=== PATIENT | male | born 1950 | race Caucasian/White ===

== ENCOUNTER 2017-08-22 09:40 | Inpatient (IN) | payer OTHER ==
--- NOTE | 2017-08-22 10:16 | EDPHY ---
H & P Stated Complaint: cough, chills, fevers for a few days Time Seen by Provider: 08/22/17 10:01 HPI/ROS: CHIEF COMPLAINT: "I just feel like crap " HISTORY OF PRESENT ILLNESS: 67-year-old male with multiple medical comorbidities including history of coronary artery disease, right mastectomy with breast cancer history, diabetes, CHF, AICD, complaining of 2 days of worsening flu-like symptoms including fever, nonproductive cough, myalgia, headache, intermittent vomiting, nausea. Out-of-date with influenza vaccine Denies: Abdominal pain, back or flank pain, diarrhea, melena hematochezia, international travel, PRIMARY CARE PROVIDER: Dr. Valeriy Gaxiola at [facility] physicians in [place] REVIEW OF SYSTEMS: A ten point review of systems was performed and is negative with the exception of the items mentioned in the HPI PAST MEDICAL & SURGICAL HISTORY: Breast cancer. Right mastectomy. CHF. AICD. Coronary artery disease. Diabetes. Multiple abdominal surgeries. Partial gastrectomy. BPH. SOCIAL HISTORY:nonsmoker. PHYSICAL EXAM (Prior to examination, patient consented to physical exam, hands were washed and my usual and customary physical exam procedures followed) 1) GENERAL: Well-developed, well-nourished, alert and oriented. Appears uncomfortable. 2) HEAD: Normocephalic, atraumatic 3) HEENT: Pupils equal, round, reactive to light bilaterally. Sclera anicteric. Nasopharynx, oropharynx, clear, no lesions. Ears bilaterally with normal tympanic membranes. 4) NECK: Full range of motion, no meningeal signs. 5) LUNGS: Clear bilaterally no retractions no accessory muscle use. 6) HEART: Regular rate and rhythm, no murmur, no heave, no gallop. 7) ABDOMEN: No guarding, no rebound, no focal tenderness, negative McBurney's, negative Contreras's, negative Rovsing's, negative peritoneal sign, 8) MUSCULOSKELETAL: Moving all extremities, no focal areas of tenderness, no obvious trauma. No peripheral edema or discoloration. 9) BACK: No CVA tenderness, no midline vertebral tenderness, no fluctuance, no step-off, no obvious trauma, no visual or palpable abnormality. 10) SKIN: No rash, no petechiae. 11) Psychiatric: Patient is oriented X 3, there is no agitation. DIFFERENTIAL DIAGNOSIS: in no particular include but limited to influenza a pneumonia, bronchitis, bowel obstruction, DKA - Personal History Current Tetanus/Diphtheria Vaccine: Yes Current Tetanus Diphtheria and Acellular Pertussis (TDAP): Yes Tetanus Vaccine Date: 2010 - Medical/Surgical History Hx Asthma: No Hx Chronic Respiratory Disease: No Hx Diabetes: Yes Hx Cardiac Disease: Yes Hx Renal Disease: No Hx Cirrhosis: No Hx Alcoholism: No Hx HIV/AIDS: No Hx Splenectomy or Spleen Trauma: No Other PMH: CHF,aicd Pacer,Right, CAD, R sided Breast CA s/p mastectomy, Diabetes type 2, IBS, extensive abdominal surgeries, neuropathies, roque. lle, partial gastrectomy, and feet,hyperlipidemia,enlarged prstate/bph retention/ nocturia - Social History Smoking Status: Former smoker Constitutional: Initial Vital Signs Temperature (C) 37.5 C 08/22/17 09:45 Heart Rate 102 H 08/22/17 09:45 Respiratory Rate 20 08/22/17 09:45 Blood Pressure 164/73 H 08/22/17 09:45 O2 Sat (%) 91 L 08/22/17 09:45 O2 Delivery Mode Nasal Cannula O2 (L/minute) 2 Allergies/Adverse Reactions: Fish Containing Products Allergy (Severe, Verified 08/22/17 09:42) BLEEDING fish oil Allergy (Severe, Verified 08/22/17 09:42) Home Medications: Medication Instructions Recorded Aspirin [Aspirin 81mg (*)] 81 mg PO DAILY@16 08/22/17 Atorvastatin Calcium [Lipitor 40 40 mg PO HS 08/22/17 mg (*)] Carvedilol [Coreg (*)] 25 mg PO BID@06,16 08/22/17 Dicyclomine [Bentyl 10 MG (*)] 10 mg PO DAILY06 08/22/17 Ferrous Sulfate [Ferrous Sulf 325 325 mg PO DAILY06 08/22/17 MG (*)] Furosemide [Lasix 20 MG (*)] 20 mg PO DAILY@12 08/22/17 Furosemide [Lasix 40 MG (*)] 40 mg PO DAILY06 08/22/17 Ibuprofen [Motrin (*)] 200 mg PO QID PRN 08/22/17 Insulin Glargine [Lantus 100 50 units SC BID@06,18 08/22/17 UNITS/ML (*)] Insulin Lispro [humALOG LISPRO 100 0 unit SC QID PRN 08/22/17 units/ml (*)] Lansoprazole [Prevacid] 30 mg PO DAILY06 08/22/17 Lisinopril [Zestril 40 mg (*)] 40 mg PO DAILY06 08/22/17 Multivitamins [Multivitamin (*)] 1 each PO DAILY06 08/22/17 Potassium Cl [Klor-Con 20 meq (*)] 20 meq PO DAILY06 08/22/17 amLODIPine BESYLATE [Norvasc 5 mg 5 mg PO DAILY06 08/22/17 (*)] Medical Decision Making - Diagnostics Imaging Results: Imaging Impressions Chest X-Ray 08/22/17 10:10 Impression: No pneumonia. Stable since May 2014. Abdomen X-Ray 08/22/17 10:16 Impression: Possible large amount of free air. Results discussed with Jeremy Preciado. Abdomen CT 08/22/17 11:28 Impression: 1. Sigmoid diverticulosis. No acute diverticulitis, free fluid or abscess. 2. No obstruction or adynamic ileus. 3. Normal caliber atherosclerotic aorta. Findings discussed with Emergency Department physician, Dangelo Preciado PA-C on August 22, 2017 at 1227 hours. Imaging: Discussed imaging studies w/ heat treat supervisor Radiologist, I viewed and interpreted images myself ED Course/Re-evaluation: 10:17 a.m.:Care of patient under supervision of secondary supervising physician Dr Tomlinson with whom I discussed the case after evaluating patient. . This patient has been re-evaluated with serial examinations most recently at 1: 12 p.m., also exam by Dr. Tomlinson in the ER. Patient remains hypoxemic on room air in the mid 80s. Discussed laboratory studies which overall appear well however I am concerned about his once hypoxemia, concurrent URI symptoms. Recommended admission. Consultation with hospitalist, admit to Dr. Ayon - Data Points Laboratory Results: Laboratory Results 08/22/17 10:21 08/22/17 10:21 08/22/17 08/22/17 08/22/17 11:50 10:21 10:21 WBC RBC Hgb Hct MCV MCH MCHC RDW Plt Count MPV Neut % (Auto) Lymph % (Auto) [place] % (Auto) Eos % (Auto) Baso % (Auto) Nucleat RBC Rel Count Absolute Neuts (auto) Absolute Lymphs (auto) Absolute Monos (auto) Absolute Eos (auto) Absolute Basos (auto) Absolute Nucleated RBC Immature Gran % Immature Gran # PT 13.4 SEC SEC (12.0-15.0) INR 1.03 (0.83-1.16) APTT 30.4 SEC SEC (23.0-38.0) VBG Lactic Acid Sodium 140 mEq/L mEq/L (134-144) Potassium 3.5 mEq/L mEq/L (3.5-5.2) Chloride 103 mEq/L mEq/L (97-110) Carbon Dioxide 23 mEq/l mEq/l (22-31) Anion Gap 14 mEq/L mEq/L (8-16) BUN 21 mg/dL mg/dL (7-23) Creatinine 1.0 mg/dL mg/dL (0.7-1.3) Estimated GFR > 60 Glucose 144 mg/dL H mg/dL (70-100) Calcium 9.1 mg/dL mg/dL (8.5-10.4) Total Bilirubin 0.8 mg/dL mg/dL (0.1-1.4) Conjugated Bilirubin 0.3 mg/dL mg/dL (0.0-0.5) Unconjugated Bilirubin 0.5 mg/dL mg/dL (0.0-1.1) AST 38 IU/L IU/L (17-59) ALT 42 IU/L IU/L (21-72) Alkaline Phosphatase 88 IU/L IU/L (38-126) Total Protein 7.7 g/dL g/dL (6.3-8.2) Albumin 4.4 g/dL g/dL (3.5-5.0) Lipase 38 IU/L IU/L (23-300) Beta-Hydroxybutyrate 0.14 mmol/L mmol/L (0.02-0.27) Urine Color YELLOW Urine Appearance CLEAR Urine pH 5.0 (5.0-7.5) Ur Specific [place] 1.010 (1.002-1.030) Urine Protein NEGATIVE (NEGATIVE) Urine Ketones NEGATIVE (NEGATIVE) Urine Blood 2+ H (NEGATIVE) Urine Nitrate NEGATIVE (NEGATIVE) Urine Bilirubin NEGATIVE (NEGATIVE) Urine Urobilinogen NEGATIVE EU EU (0.2-1.0) Ur Leukocyte Esterase NEGATIVE (NEGATIVE) Urine RBC 1-3 /hpf /hpf (0-3) Urine WBC 1-3 /hpf /hpf (0-3) Ur Epithelial Cells NONE SEEN /lpf /lpf (NONE-1+) Urine Mucus TRACE /lpf /lpf (NONE-1+) Urine Glucose NEGATIVE (NEGATIVE) Nasal Influenza A PCR Nasal Influenza B PCR Influenza A & B (PCR) 08/22/17 08/22/17 08/22/17 10:21 10:21 10:02 WBC 13.34 10^3/uL H 10^3/uL (3.80-9.50) RBC 4.29 10^6/uL L 10^6/uL (4.40-6.38) Hgb 12.7 g/dL L g/dL (13.7-17.5) Hct 36.1 % L % (40.0-51.0) MCV 84.1 fL fL (81.5-99.8) MCH 29.6 pg pg (27.9-34.1) MCHC 35.2 g/dL g/dL (32.4-36.7) RDW 13.5 % % (11.5-15.2) Plt Count 180 10^3/uL 10^3/uL (150-400) MPV 10.7 fL fL (8.7-11.7) Neut % (Auto) 85.2 % H % (39.3-74.2) Lymph % (Auto) 4.8 % L % (15.0-45.0) [place] % (Auto) 7.9 % % (4.5-13.0) Eos % (Auto) 1.3 % % (0.6-7.6) Baso % (Auto) 0.4 % % (0.3-1.7) Nucleat RBC Rel Count 0.0 % % (0.0-0.2) Absolute Neuts (auto) 11.35 10^3/uL H 10^3/uL (1.70-6.50) Absolute Lymphs (auto) 0.64 10^3/uL L 10^3/uL (1.00-3.00) Absolute Monos (auto) 1.06 10^3/uL H 10^3/uL (0.30-0.80) Absolute Eos (auto) 0.17 10^3/uL 10^3/uL (0.03-0.40) Absolute Basos (auto) 0.06 10^3/uL 10^3/uL (0.02-0.10) Absolute Nucleated RBC 0.00 10^3/uL 10^3/uL (0-0.01) Immature Gran % 0.4 % % (0.0-1.1) Immature Gran # 0.06 10^3/uL 10^3/uL (0.00-0.10) PT INR APTT VBG Lactic Acid 1.2 mmol/L mmol/L (0.7-2.1) Sodium Potassium Chloride Carbon Dioxide Anion Gap BUN Creatinine Estimated GFR Glucose Calcium Total Bilirubin Conjugated Bilirubin Unconjugated Bilirubin AST ALT Alkaline Phosphatase Total Protein Albumin Lipase Beta-Hydroxybutyrate Urine Color Urine Appearance Urine pH Ur Specific [place] Urine Protein Urine Ketones Urine Blood Urine Nitrate Urine Bilirubin Urine Urobilinogen Ur Leukocyte Esterase Urine RBC Urine WBC Ur Epithelial Cells Urine Mucus Urine Glucose Nasal Influenza A PCR Nasal Influenza B PCR Influenza A & B (PCR) Cancelled 08/22/17 09:57 WBC RBC Hgb Hct MCV MCH MCHC RDW Plt Count MPV Neut % (Auto) Lymph % (Auto) [place] % (Auto) Eos % (Auto) Baso % (Auto) Nucleat RBC Rel Count Absolute Neuts (auto) Absolute Lymphs (auto) Absolute Monos (auto) Absolute Eos (auto) Absolute Basos (auto) Absolute Nucleated RBC Immature Gran % Immature Gran # PT INR APTT VBG Lactic Acid Sodium Potassium Chloride Carbon Dioxide Anion Gap BUN Creatinine Estimated GFR Glucose Calcium Total Bilirubin Conjugated Bilirubin Unconjugated Bilirubin AST ALT Alkaline Phosphatase Total Protein Albumin Lipase Beta-Hydroxybutyrate Urine Color Urine Appearance Urine pH Ur Specific [place] Urine Protein Urine Ketones Urine Blood Urine Nitrate Urine Bilirubin Urine Urobilinogen Ur Leukocyte Esterase Urine RBC Urine WBC Ur Epithelial Cells Urine Mucus Urine Glucose Nasal Influenza A PCR NEGATIVE FOR FLU A (NEGATIVE) Nasal Influenza B PCR NEGATIVE FOR FLU B (NEGATIVE) Influenza A & B (PCR) Microbiology Results: MICROBIOLOGY 08/22/17 10:25 Nasal, Sinus - Cornelius Viral Transport Respiratory Panel ( PCR) - Final Human Rhinovirus/Enterovirus Medications Given: Acetaminophen (Tylenol) 650 mg PO Q4 PRN PRN Reason: Pain, Mild/Fever, Can Take PO Stop: 02/18/18 15:41 Last Admin: 08/22/17 16:32 Dose: 650 mg Albuterol/Ipratropium (Duoneb) 3 ml IH Q6 BRIAN Stop: 02/18/18 17:59 Last Admin: 08/22/17 16:45 Dose: 3 ml Aspirin (Aspirin) 81 mg PO DAILY@16 BRIAN Stop: 02/18/18 15:59 Last Admin: 08/22/17 16:26 Dose: 81 mg Carvedilol (Coreg) 25 mg PO BID@06,16 [facility] Stop: 02/18/18 15:59 Last Admin: 08/22/17 16:26 Dose: 25 mg Fluticasone Propionate (Flonase Nasal Burns) 2 sprays EACHNARE DAILY [facility] Stop: 02/18/18 15:44 Last Admin: 08/22/17 16:25 Dose: 2 spray Departure - Departure Disposition: [facility] Acute Clinical Impression: Hypoxemia
[2017-08-22 10:32] LABS: % IMMATURE GRANULYOCYTES 0.4 % (0.0-1.1); ABSOLUTE IMMATURE GRANULOCYTES 0.06 10^3/uL (0.00-0.10); ADD DIFF? NO; ADD MORPH? NO; ADD SCAN? NO; ATYPICAL LYMPHOCYTE FLAG 0 (0-99); FRAGMENT RBC FLAG 0 (0-99); HEMATOCRIT 36.1 % (40.0-51.0); HEMOGLOBIN 12.7 g/dL (13.7-17.5); LEFT SHIFT FLG 20 (0-99); LIPEMIA HEMOLYSIS FLAG 90 (0-99); MEAN CELL HEMOGLOBIN 29.6 pg (27.9-34.1); MEAN CELL HEMOGLOBIN CONCENTR. 35.2 g/dL (32.4-36.7); MEAN CELL VOLUME 84.1 fL (81.5-99.8); MEAN PLATELET VOLUME 10.7 fL (8.7-11.7); PLATELET CLUMPS FLAG 10 (0-99); PLATELET COUNT 180 10^3/uL (150-400); RED BLOOD CELL COUNT 4.29 10^6/uL (4.40-6.38); RED CELL DISTRIBUTION WIDTH 13.5 % (11.5-15.2)
[2017-08-22 10:44] LABS: INR 1.03 (0.83-1.16); PROTIME(PATIENT) 13.4 SEC (12.0-15.0)
[2017-08-22 10:45] LABS: APTT 30.4 SEC (23.0-38.0)
[2017-08-22 10:57] LABS: ALANINE AMINOTRANSFERASE 42 IU/L (21-72); ALBUMIN 4.4 g/dL (3.5-5.0); ALKALINE PHOSPHATASE 88 IU/L (38-126); ANION GAP 14 mEq/L (8-16); ASPARTATE AMINOTRANSFERASE 38 IU/L (17-59); BILIRUBIN,TOTAL 0.8 mg/dL (0.1-1.4); BILIRUBIN-CONJUGATED 0.3 mg/dL (0.0-0.5); BILIRUBIN-UNCONJUGATED 0.5 mg/dL (0.0-1.1); CALCIUM 9.1 mg/dL (8.5-10.4); CARBON DIOXIDE 23 mEq/l (22-31); CHLORIDE 103 mEq/L (97-110); GLOMERULAR FILTRATION RATE > 60; GLUCOSE 144 mg/dL (70-100); POTASSIUM 3.5 mEq/L (3.5-5.2); SODIUM 140 mEq/L (134-144); TOTAL PROTEIN 7.7 g/dL (6.3-8.2)
[2017-08-22 11:24] LABS: B-HYDROXYBUTYRATE 0.14 mmol/L (0.02-0.27)
[2017-08-22] MEDS ORDERED: IOPAMIDOL (ISOVUE-300) 100 ML BTL ONE (11:44)
[2017-08-22 11:58] LABS: COLOR YELLOW; LEUKOCYTE ESTERASE,URINE NEGATIVE (NEGATIVE); NITRITE,URINE NEGATIVE (NEGATIVE)
[2017-08-22 12:23] LABS: MUCUS TRACE /lpf (NONE-1+)
[2017-08-22] MEDS ORDERED: D50W 25 GM/50 ML SYR IVP PRN (15:39)
[2017-08-22] MEDS ORDERED: SODIUM CL NASAL 45 ML BTL EACHNARE PRN (15:40)
[2017-08-22] MEDS ORDERED: ONDANSETRON 4 MG/2 ML VIAL IVP PRN (15:42)
[2017-08-22] MEDS: FLUTICASONE NASAL 120 SPRAYS/16 GM MDI EACHNARE SCH ×2 (16:25→20:32)
--- NOTE | 2017-08-22 16:25 | GHP ---
[f rep st] HISTORY AND PHYSICAL DATE OF ADMISSION: 08/22/2017 CHIEF COMPLAINT: Congestion. HISTORY: The patient is a 67-year-old male, who has been sick for 3 days, initially developing nasal congestion that subsequently moved into his chest and now he has cough productive of a white sputum. He has had a fever to 100.7 , and headache, nausea, and vomiting x1 day. He is getting progressively more weak. He lives alone. He has noticed wheezing at home with shortness of breath. There has been no chest pain. PAST MEDICAL HISTORY: 1. Diabetes type 2. 2. Hypertension. 3. Systolic congestive heart failure. Ejection fraction 25% with AICD. 4. Coronary artery disease with known near total right coronary artery occlusion. 5. Benign prostatic hypertrophy status post GreenLight laser treatment. 6. Breast cancer status post mastectomy. PAST SURGICAL HISTORY: Cholecystectomy. MEDICATIONS: Please see computer record for full detailed list. ALLERGIES: Fish oil. SOCIAL HISTORY: No smoking. No alcohol. He did smoke in the past off and on for 40 years. Quitting finally in 2003. He lives alone. REVIEW OF SYSTEMS: Complete review of systems obtained. Review of systems negative regarding constitutional, HEENT, GI, pulmonary, cardiovascular, , hematology, skin, muscular, endocrine, psych except for positives as in HPI. FAMILY HISTORY: Reviewed, noncontributory to current complaint. PHYSICAL EXAMINATION: GENERAL: Well-developed, well-nourished male, in no distress. VITAL SIGNS: Temperature 37.5, pulse 90, blood pressure 154/76. In the emergency room saturating 80% on room air. EYE: Normal conjunctivae. Pupils equal and reactive to light. ENT: Normal ears, nose. Hearing intact. Normal lips and teeth. Oropharynx moist. NECK: Trachea midline. No thyromegaly. CHEST: Normal respiratory effort. LUNGS: Clear to auscultation bilaterally. No wheezing. No rales. CARDIOVASCULAR: Regular rhythm. No murmur. No extremity edema. ABDOMEN: Soft, nontender. No hepatosplenomegaly. SKIN: Warm, dry, intact. No rash. MUSCULOSKELETAL: No cyanosis or clubbing. Strength 5/5 upper and lower extremities. NEUROLOGIC: Cranial nerves intact. Normal sensation to light touch. PSYCH: Alert and oriented x3. Normal affect. Normal judgment and insight. Normal memory. HOSPITAL IMAGING/DATA: White count 13.34, hematocrit 36.1, platelets 180. Sodium 140, potassium 3.5, chloride 103, bicarb 23, BUN 21, creatinine 1.0, glucose 144. LFTs are negative. Lactate is 1.2. Flu swab is negative. Respiratory PCR positive for rhinovirus and enterovirus. Urinalysis is negative. Chest x-ray is negative. Abdominal x-ray showed possible free air- Xray viewed and personally interpreted. This was followed up with a CT scan of the abdomen and pelvis that was negative. Medical chart reviewed - summary as discussed above. ASSESSMENT/PLAN: 1. Viral upper respiratory tract infection. PCR positive for rhinovirus and enterovirus. At this point, I am not suspicious for a superimposed bacterial pneumonia so will hold off on antibiotics. Will treat supportively. 2. Acute respiratory failure. 80% on room air. I suspect he is having a mild reactive airway disease exacerbation to his viral infection and he may have underlying chronic obstructive pulmonary disease given his smoking history. Will start him on scheduled nebulizers, but I do not think wheezing is severe enough at this point to consider steroids, but he will be followed. 3. Acute weakness. I think this is due to his viral infection. Will consult Physical therapy, Occupational therapy. 4. Diabetes type 2. Continue his insulin plus a sliding scale. 5. Chronic systolic congestive heart failure. Ejection fraction 25% with automatic implanted cardiac defibrillator. He is well compensated at this time. Will continue his home medication regimen, including an angiotensin- converting enzyme inhibitor, Coreg, a statin drug, and Lasix. 6. Obesity. BMI 36. CODE STATUS: Full. ADMISSION STATUS: 1. Will admit to observation. Depending on clinical course will determine length of treatment needed. 2. DVT prophylaxis. He is high risk. Will place on subcu Lovenox. /[id number]/MODL MTDD
[2017-08-22] MEDS: ASPIRIN 81 MG CHEWABLE TAB PO SCH (16:26)
[2017-08-22] MEDS: CARVEDILOL 25 MG TAB PO SCH (16:26)
[2017-08-22] MEDS: ACETAMINOPHEN 325 MG TAB PO PRN (16:32)
[2017-08-22] MEDS: IPRATROPIUM/ALBUTEROL 3 ML DEYVIAL IH SCH ×2 (16:45→23:41)
[2017-08-22] MEDS: INSULIN REGULAR HUMAN 100 UNIT/ML SC SCH ×2 (17:51→20:41)
[2017-08-22] MEDS: INSULIN GLARGINE 100 UNITS/ML SYRINGE SC SCH ×3 (17:55→20:54)
[2017-08-22] MEDS: ATORVASTATIN CALCIUM 40 MG TAB PO SCH (20:31)
[2017-08-23] MEDS: HYDROcodone/CPM TUSSIONEX 5 ML UDSYR PO PRN ×2 (00:39→23:17)
[2017-08-23] MEDS: BENZONATATE 100 MG CAP PO PRN (00:40)
[2017-08-23] MEDS: ACETAMINOPHEN 325 MG TAB PO PRN (00:40)
[2017-08-23 04:48] LABS: % IMMATURE GRANULYOCYTES 0.4 % (0.0-1.1); ABSOLUTE IMMATURE GRANULOCYTES 0.04 10^3/uL (0.00-0.10); ADD DIFF? NO; ADD MORPH? NO; ADD SCAN? NO; ATYPICAL LYMPHOCYTE FLAG 0 (0-99); FRAGMENT RBC FLAG 0 (0-99); HEMOGLOBIN 11.5 g/dL (13.7-17.5); LEFT SHIFT FLG 10 (0-99); LIPEMIA HEMOLYSIS FLAG 90 (0-99); MEAN CELL HEMOGLOBIN CONCENTR. 33.8 g/dL (32.4-36.7); MEAN CELL VOLUME 85.9 fL (81.5-99.8); MEAN PLATELET VOLUME 10.9 fL (8.7-11.7); PLATELET CLUMPS FLAG 10 (0-99); PLATELET COUNT 169 10^3/uL (150-400); RED BLOOD CELL COUNT 3.96 10^6/uL (4.40-6.38); RED CELL DISTRIBUTION WIDTH 13.5 % (11.5-15.2)
[2017-08-23 04:59] LABS: POTASSIUM 3.5 mEq/L (3.5-5.2)
[2017-08-23 05:00] LABS: ANION GAP 12 mEq/L (8-16); CALCIUM 8.7 mg/dL (8.5-10.4); CARBON DIOXIDE 24 mEq/l (22-31); CHLORIDE 102 mEq/L (97-110); GLOMERULAR FILTRATION RATE > 60; GLUCOSE 147 mg/dL (70-100); SODIUM 138 mEq/L (134-144)
[2017-08-23] MEDS: IPRATROPIUM/ALBUTEROL 3 ML DEYVIAL IH SCH ×3 (05:53→16:43)
[2017-08-23] MEDS ORDERED: LANSOPRAZOLE SUSP 3 MG/ML UDSYR (Peds) PO SCH (06:00)
[2017-08-23] MEDS: PANTOPRAZOLE SODIUM 40 MG TAB PO SCH (06:32)
[2017-08-23] MEDS: FERROUS SULFATE 325 MG TAB PO SCH (06:32)
[2017-08-23] MEDS: LISINOPRIL 40 MG TAB PO SCH (06:32)
[2017-08-23] MEDS: DICYCLOMINE 10 MG CAP PO SCH (06:33)
[2017-08-23] MEDS: CARVEDILOL 25 MG TAB PO SCH ×2 (06:33→16:12)
[2017-08-23] MEDS: amLODIPine BESYLATE 5 MG TAB PO SCH (06:33)
[2017-08-23] MEDS: FUROSEMIDE 40 MG TAB PO SCH (06:33)
[2017-08-23] MEDS: POTASSIUM CL 20 MEQ TAB PO SCH (06:33)
[2017-08-23] MEDS: INSULIN REGULAR HUMAN 100 UNIT/ML SC SCH ×2 (07:40→14:58)
[2017-08-23] MEDS: ENOXAPARIN 40 MG/0.4 ML SYR SC SCH (07:52)
[2017-08-23] MEDS: INSULIN GLARGINE 100 UNITS/ML SYRINGE SC SCH ×2 (07:55→18:13)
[2017-08-23] MEDS ORDERED: D50W 25 GM/50 ML SYR IVP PRN (14:07)
[2017-08-23] MEDS ORDERED: INSULIN LISPRO 100 UNIT/ML SC SCH (14:30)
[2017-08-23] MEDS: FUROSEMIDE 20 MG TAB PO SCH (15:14)
[2017-08-23] MEDS: ASPIRIN 81 MG CHEWABLE TAB PO SCH (16:12)
[2017-08-23] MEDS: IBUPROFEN 200 MG TAB PO PRN (16:12)
--- NOTE | 2017-08-23 16:40 | HOSPPROG ---
Hospitalist Progress Note Assessment/Plan: * Acute respiratory failure - still quite hypoxic on RA -if persistent, consider rule out PE -mild RAD - possible COPD - continue nebs * Viral URI -continue supportive care * Chronic systolic CHF s/p AICD, EF 25% -well compensated * DM II -insulin * Obesity BMI 36 Subjective: Feeling better Objective: Vital Signs Temp Pulse Resp BP Pulse Ox 36.6 C 79 19 142/60 H 94 08/23/17 16:00 08/23/17 16:00 08/23/17 16:00 08/23/17 16:00 08/23/17 16:00 PT 13.4 SEC (12.0-15.0) 08/22/17 10:21 INR 1.03 (0.83-1.16) 08/22/17 10:21 - Physical Exam Constitutional: no apparent distress, appears nourished, not in pain Cardiovascular: regular rate and rhythym, no murmur, rub, or gallop Respiratory: no respiratory distress, no rales or rhonchi, clear to auscultation Gastrointestinal: normoactive bowel sounds, soft, non-tender abdomen, no palpable masses Skin: no rashes or abrasions, no fluctuance, no induration Neurologic: AAOx3, sensation intact bilaterally Psychiatric: interacting appropriately, not anxious, not encephalopathic, thought process linear ICD10 Worksheet Patient Problems: Problems Problem Status Onset Hypoxemia Acute Exhaustion Acute CHF - Systolic heart failure Chronic Diabetes mellitus type 2 Chronic
--- NOTE | 2017-08-23 17:06 | ASMTCASEMG ---
Living Arrangements What is your living Answers: Alone arrangement? Who do you live with? Type Of Residence What kind of residence do Answers: House you live in? Discharge Plan Comments Coordination Status Comments Notes: Chart reviewed and spoke w/ ADAM Pacheco regarding d/c POC. Pt is a 67 y/o man admitted w/ hypoxemia and URI symptoms. PT is recommending that he goes home independently. OT is recommending HC. CM met w/ pt for dispo planning. Pt does not feel like he needs HC at this time. Pt will most likely d/c independent when medically stable w/ supportive family. CM available for changes. Date Signed: 08/23/2017 05:05 PM Electronically Signed By:SONYA Barry
[2017-08-23] MEDS: INSULIN LISPRO 100 UNIT/ML SC PRN (18:12)
[2017-08-23] MEDS: ATORVASTATIN CALCIUM 40 MG TAB PO SCH (23:17)
[2017-08-23] MEDS ORDERED: ALBUMIN 5% 500 ML IV ONE (23:30)
[2017-08-24] MEDS: IPRATROPIUM/ALBUTEROL 3 ML DEYVIAL IH SCH ×5 (00:12→23:20)
[2017-08-24] MEDS: amLODIPine BESYLATE 5 MG TAB PO SCH (05:10)
[2017-08-24] MEDS: CARVEDILOL 25 MG TAB PO SCH ×2 (05:11→16:15)
[2017-08-24] MEDS: DICYCLOMINE 10 MG CAP PO SCH (05:11)
[2017-08-24] MEDS: POTASSIUM CL 20 MEQ TAB PO SCH (05:12)
[2017-08-24] MEDS: LISINOPRIL 40 MG TAB PO SCH (05:12)
[2017-08-24] MEDS: FUROSEMIDE 40 MG TAB PO SCH (05:12)
[2017-08-24] MEDS: FERROUS SULFATE 325 MG TAB PO SCH (05:13)
[2017-08-24] MEDS: PANTOPRAZOLE SODIUM 40 MG TAB PO SCH (05:14)
[2017-08-24] MEDS: BENZONATATE 100 MG CAP PO PRN (08:02)
[2017-08-24] MEDS: GUAIFENESIN/DM 10 ML UDCUP PO PRN (08:02)
[2017-08-24] MEDS: ENOXAPARIN 40 MG/0.4 ML SYR SC SCH (08:02)
[2017-08-24] MEDS: INSULIN GLARGINE 100 UNITS/ML SYRINGE SC SCH ×2 (08:02→18:24)
--- NOTE | 2017-08-24 08:21 | PDMN ---
Medical Necessity Medical necessity: change to IP; los>2mn for acute resp failure, viral URI, with continued significant hypoxia; continue supplemental O2, nebs, and supportive care; comorbid CHF, DM, obesity; per progress note 08/23/17
[2017-08-24] MEDS: INSULIN LISPRO 100 UNIT/ML SC PRN ×3 (08:35→18:24)
[2017-08-24] MEDS: FLUTICASONE NASAL 120 SPRAYS/16 GM MDI EACHNARE SCH (08:36)
[2017-08-24] MEDS: FUROSEMIDE 20 MG TAB PO SCH (11:53)
[2017-08-24] MEDS: ASPIRIN 81 MG CHEWABLE TAB PO SCH (16:15)
--- NOTE | 2017-08-24 16:57 | HOSPPROG ---
Hospitalist Progress Note Assessment/Plan: * Acute respiratory failure - still quite hypoxic on RA -ddimer positive - will check CTA rule out PE -mild RAD - possible COPD - continue nebs * Viral URI -continue supportive care * Chronic systolic CHF s/p AICD, EF 25% -well compensated * DM II -insulin * Obesity BMI 36 Subjective: Maybe a little better Objective: Vital Signs Temp Pulse Resp BP Pulse Ox 36.8 C 76 21 H 150/66 H 94 08/24/17 16:38 08/24/17 16:38 08/24/17 16:38 08/24/17 16:38 08/24/17 16:38 08/23/17 08/24/17 08/25/17 05:59 05:59 05:59 Intake Total 300 350 Output Total 500 1250 Balance -200 -900 PT 13.4 SEC (12.0-15.0) 08/22/17 10:21 INR 1.03 (0.83-1.16) 08/22/17 10:21 - Physical Exam Constitutional: no apparent distress, appears nourished, not in pain Cardiovascular: regular rate and rhythym, no murmur, rub, or gallop Respiratory: no respiratory distress, no rales or rhonchi, clear to auscultation Gastrointestinal: normoactive bowel sounds, soft, non-tender abdomen, no palpable masses Skin: no rashes or abrasions, no fluctuance, no induration Neurologic: AAOx3, sensation intact bilaterally Psychiatric: interacting appropriately, not anxious, not encephalopathic, thought process linear ICD10 Worksheet Patient Problems: Problems Problem Status Onset Hypoxemia Acute Exhaustion Acute CHF - Systolic heart failure Chronic Diabetes mellitus type 2 Chronic
[2017-08-24] MEDS ORDERED: IOPAMIDOL (ISOVUE 370) 100 ML BTL IV ONE (17:21)
[2017-08-24] MEDS: HYDROcodone/CPM TUSSIONEX 5 ML UDSYR PO PRN (21:05)
[2017-08-24] MEDS: ATORVASTATIN CALCIUM 40 MG TAB PO SCH (21:05)
[2017-08-24] MEDS: IBUPROFEN 200 MG TAB PO PRN (21:10)
[2017-08-25] MEDS: GUAIFENESIN/DM 10 ML UDCUP PO PRN (00:45)
[2017-08-25] MEDS: IPRATROPIUM/ALBUTEROL 3 ML DEYVIAL IH SCH ×4 (05:04→22:15)
[2017-08-25 05:21] LABS: % IMMATURE GRANULYOCYTES 0.4 % (0.0-1.1); ABSOLUTE IMMATURE GRANULOCYTES 0.03 10^3/uL (0.00-0.10); ADD DIFF? NO; ADD MORPH? NO; ADD SCAN? NO; ATYPICAL LYMPHOCYTE FLAG 0 (0-99); FRAGMENT RBC FLAG 0 (0-99); HEMOGLOBIN 11.4 g/dL (13.7-17.5); LEFT SHIFT FLG 0 (0-99); LIPEMIA HEMOLYSIS FLAG 80 (0-99); MEAN CELL HEMOGLOBIN 28.9 pg (27.9-34.1); MEAN CELL HEMOGLOBIN CONCENTR. 33.5 g/dL (32.4-36.7); MEAN CELL VOLUME 86.1 fL (81.5-99.8); MEAN PLATELET VOLUME 10.7 fL (8.7-11.7); PLATELET CLUMPS FLAG 0 (0-99); PLATELET COUNT 188 10^3/uL (150-400); RED BLOOD CELL COUNT 3.95 10^6/uL (4.40-6.38); RED CELL DISTRIBUTION WIDTH 13.5 % (11.5-15.2)
[2017-08-25 05:43] LABS: ANION GAP 12 mEq/L (8-16); CALCIUM 8.6 mg/dL (8.5-10.4); CARBON DIOXIDE 25 mEq/l (22-31); CHLORIDE 103 mEq/L (97-110); CREATININE 1.1 mg/dL (0.7-1.3); GLOMERULAR FILTRATION RATE > 60; GLUCOSE 158 mg/dL (70-100); POTASSIUM 3.7 mEq/L (3.5-5.2); SODIUM 140 mEq/L (134-144)
[2017-08-25] MEDS: FUROSEMIDE 40 MG TAB PO SCH (06:00)
[2017-08-25] MEDS: INSULIN GLARGINE 100 UNITS/ML SYRINGE SC SCH ×2 (06:01→16:26)
[2017-08-25] MEDS: DICYCLOMINE 10 MG CAP PO SCH (06:03)
[2017-08-25] MEDS: LISINOPRIL 40 MG TAB PO SCH (06:04)
[2017-08-25] MEDS: PANTOPRAZOLE SODIUM 40 MG TAB PO SCH (06:04)
[2017-08-25] MEDS: amLODIPine BESYLATE 5 MG TAB PO SCH (06:05)
[2017-08-25] MEDS: FERROUS SULFATE 325 MG TAB PO SCH (06:06)
[2017-08-25] MEDS: CARVEDILOL 25 MG TAB PO SCH ×2 (06:06→16:26)
[2017-08-25] MEDS: POTASSIUM CL 20 MEQ TAB PO SCH (06:06)
[2017-08-25] MEDS: HYDROcodone/CPM TUSSIONEX 5 ML UDSYR PO PRN (09:40)
[2017-08-25] MEDS: FLUTICASONE NASAL 120 SPRAYS/16 GM MDI EACHNARE SCH (09:42)
[2017-08-25] MEDS: ENOXAPARIN 40 MG/0.4 ML SYR SC SCH (09:42)
[2017-08-25] MEDS: FUROSEMIDE 20 MG TAB PO SCH (12:32)
--- NOTE | 2017-08-25 13:22 | HOSPPROG ---
Hospitalist Progress Note Assessment/Plan: # acute hypoxic respiratory failure - not improved; follow closely - cont steroids, BDs, mucomyst, IS, flutter valve # viral respiratory infection # mucous plugging, atelectasis - seems less likely to be bacterial pna - check pct - pulm hygiene, mucomyst, steroids # chronic systolic CHF, AICD, EF 25% - coreg, lisinopril, lasix # DM2 - insulin # obesity - BMI 36 Subjective: does not feel any better; still coughing Objective: Vital Signs Temp Pulse Resp BP Pulse Ox 36.9 C 78 15 161/76 H 92 08/25/17 08:00 08/25/17 08:00 08/25/17 08:00 08/25/17 08:00 08/25/17 08:00 Laboratory Results 08/25/17 04:37 08/25/17 04:37 08/24/17 08/25/17 08/26/17 05:59 05:59 05:59 Intake Total 300 750 Output Total 500 2024 200 Balance -200 -1275 -200 PT 13.4 SEC (12.0-15.0) 08/22/17 10:21 INR 1.03 (0.83-1.16) 08/22/17 10:21 chart reviewed CTA personally reviewed - Physical Exam Constitutional: no apparent distress, appears nourished Cardiovascular: regular rate and rhythym, no murmur, rub, or gallop Respiratory: other (mild resp distress; mild wheezes; likely bilat lower lobe crackles;), No reduced air movement Gastrointestinal: normoactive bowel sounds, soft, non-tender abdomen, no palpable masses ICD10 Worksheet Patient Problems: Problems Problem Status Onset CHF - Systolic heart failure Chronic Diabetes mellitus type 2 Chronic Exhaustion Acute Hypoxemia Acute
[2017-08-25] MEDS: INSULIN LISPRO 100 UNIT/ML SC PRN (14:22)
[2017-08-25] MEDS: predniSONE 20 MG TAB PO SCH (14:23)
[2017-08-25] MEDS: ACETYLCYSTEINE 10% 30 ML VIAL IH SCH ×2 (16:08→22:15)
--- NOTE | 2017-08-25 16:23 | ASMTCMCOM ---
CM Note CM Note Notes: Reviewed chart re: d/c poc, pt's progress. Per MD notes, pt's acute hypoxic resp failure not improving; pt w/ viral infection. Discharge plan remains TBD. PT/OT rec home w/ no needs. CM will cont to follow. Date Signed: 08/25/2017 04:22 PM Electronically Signed By:Evangelina Mckeon RN
[2017-08-25] MEDS: ASPIRIN 81 MG CHEWABLE TAB PO SCH (16:26)
[2017-08-25] MEDS: ATORVASTATIN CALCIUM 40 MG TAB PO SCH (20:28)
[2017-08-26] MEDS: HYDROcodone/CPM TUSSIONEX 5 ML UDSYR PO PRN (00:23)
[2017-08-26] MEDS: FERROUS SULFATE 325 MG TAB PO SCH (04:51)
[2017-08-26] MEDS: amLODIPine BESYLATE 5 MG TAB PO SCH (04:51)
[2017-08-26] MEDS: DICYCLOMINE 10 MG CAP PO SCH (04:51)
[2017-08-26] MEDS: LISINOPRIL 40 MG TAB PO SCH (04:53)
[2017-08-26] MEDS: FUROSEMIDE 40 MG TAB PO SCH (04:54)
[2017-08-26] MEDS: CARVEDILOL 25 MG TAB PO SCH ×2 (04:54→16:10)
[2017-08-26] MEDS: PANTOPRAZOLE SODIUM 40 MG TAB PO SCH (04:54)
[2017-08-26] MEDS: POTASSIUM CL 20 MEQ TAB PO SCH (04:55)
[2017-08-26] MEDS: GUAIFENESIN/DM 10 ML UDCUP PO PRN ×2 (04:56→21:50)
[2017-08-26] MEDS: INSULIN GLARGINE 100 UNITS/ML SYRINGE SC SCH ×2 (05:00→16:11)
[2017-08-26 05:48] LABS: ANION GAP 13 mEq/L (8-16); CALCIUM 8.8 mg/dL (8.5-10.4); CARBON DIOXIDE 25 mEq/l (22-31); CHLORIDE 104 mEq/L (97-110); CREATININE 0.9 mg/dL (0.7-1.3); GLOMERULAR FILTRATION RATE > 60; GLUCOSE 96 mg/dL (70-100); SODIUM 142 mEq/L (134-144)
[2017-08-26] MEDS: IPRATROPIUM/ALBUTEROL 3 ML DEYVIAL IH SCH ×4 (06:02→20:16)
[2017-08-26] MEDS: ACETYLCYSTEINE 10% 30 ML VIAL IH SCH ×4 (06:02→20:17)
[2017-08-26] MEDS: predniSONE 20 MG TAB PO SCH (08:00)
[2017-08-26] MEDS: FLUTICASONE NASAL 120 SPRAYS/16 GM MDI EACHNARE SCH (08:00)
[2017-08-26] MEDS: ENOXAPARIN 40 MG/0.4 ML SYR SC SCH (08:00)
[2017-08-26 08:43] LABS: % IMMATURE GRANULYOCYTES 0.7 % (0.0-1.1); ABSOLUTE IMMATURE GRANULOCYTES 0.07 10^3/uL (0.00-0.10); ADD DIFF? NO; ADD MORPH? NO; ADD SCAN? NO; ATYPICAL LYMPHOCYTE FLAG 10 (0-99); FRAGMENT RBC FLAG 0 (0-99); HEMATOCRIT 35.7 % (40.0-51.0); HEMOGLOBIN 12.3 g/dL (13.7-17.5); LEFT SHIFT FLG 10 (0-99); LIPEMIA HEMOLYSIS FLAG 90 (0-99); MEAN CELL HEMOGLOBIN 29.4 pg (27.9-34.1); MEAN CELL HEMOGLOBIN CONCENTR. 34.5 g/dL (32.4-36.7); MEAN CELL VOLUME 85.2 fL (81.5-99.8); MEAN PLATELET VOLUME 10.5 fL (8.7-11.7); PLATELET CLUMPS FLAG 0 (0-99); PLATELET COUNT 201 10^3/uL (150-400); RED BLOOD CELL COUNT 4.19 10^6/uL (4.40-6.38); RED CELL DISTRIBUTION WIDTH 13.5 % (11.5-15.2)
--- NOTE | 2017-08-26 10:27 | HOSPPROG ---
Hospitalist Progress Note Assessment/Plan: # acute hypoxic respiratory failure - very mild improvement - cont steroids, BDs, mucomyst, IS, flutter valve - will give one dose of lasix IV today # viral respiratory infection # mucous plugging, atelectasis - pulm hygiene, mucomyst, steroids, flutter valve # chronic systolic CHF, AICD, EF 25% - coreg, lisinopril, lasix # DM2 - insulin # obesity - BMI 36 # htn - amlodipine, coreg Subjective: maybe feels slightly better; not coughing much Objective: Vital Signs Temp Pulse Resp BP Pulse Ox 36.7 C 90 18 151/78 H 95 08/26/17 07:09 08/26/17 07:09 08/26/17 07:09 08/26/17 07:09 08/26/17 07:09 Laboratory Results 08/26/17 08:38 08/26/17 04:34 08/25/17 08/26/17 08/27/17 05:59 05:59 05:59 Intake Total 750 600 Output Total 2024 700 300 Balance -1275 -100 -300 PT 13.4 SEC (12.0-15.0) 08/22/17 10:21 INR 1.03 (0.83-1.16) 08/22/17 10:21 CXR reviewed tele reviewed - Physical Exam Constitutional: obese, unkempt Cardiovascular: regular rate and rhythym, systolic murmur Respiratory: no respiratory distress, expiratory wheeze (mild), inspiratory crackles (mild, bases), No bronchial breath sounds Gastrointestinal: normoactive bowel sounds, soft, non-tender abdomen, no palpable masses ICD10 Worksheet Patient Problems: Problems Problem Status Onset CHF - Systolic heart failure Chronic Diabetes mellitus type 2 Chronic Exhaustion Acute Hypoxemia Acute
[2017-08-26] MEDS ORDERED: FUROSEMIDE 20 MG/2 ML VIAL IVP ONE (12:00)
[2017-08-26] MEDS: ASPIRIN 81 MG CHEWABLE TAB PO SCH (16:10)
[2017-08-26] MEDS: INSULIN LISPRO 100 UNIT/ML SC PRN ×2 (17:29→21:50)
[2017-08-26] MEDS: ATORVASTATIN CALCIUM 40 MG TAB PO SCH (20:29)
[2017-08-27] MEDS: DICYCLOMINE 10 MG CAP PO SCH (05:32)
[2017-08-27] MEDS: CARVEDILOL 25 MG TAB PO SCH ×2 (05:32→17:03)
[2017-08-27] MEDS: FERROUS SULFATE 325 MG TAB PO SCH (05:32)
[2017-08-27] MEDS: POTASSIUM CL 20 MEQ TAB PO SCH (05:32)
[2017-08-27] MEDS: LISINOPRIL 40 MG TAB PO SCH (05:32)
[2017-08-27] MEDS: amLODIPine BESYLATE 5 MG TAB PO SCH (05:32)
[2017-08-27] MEDS: FUROSEMIDE 40 MG TAB PO SCH (05:32)
[2017-08-27] MEDS: PANTOPRAZOLE SODIUM 40 MG TAB PO SCH (05:32)
[2017-08-27] MEDS: ACETYLCYSTEINE 10% 30 ML VIAL IH SCH ×3 (05:50→15:41)
[2017-08-27] MEDS: IPRATROPIUM/ALBUTEROL 3 ML DEYVIAL IH SCH ×3 (05:50→15:41)
[2017-08-27 06:31] LABS: ANION GAP 13 mEq/L (8-16); CALCIUM 8.9 mg/dL (8.5-10.4); CARBON DIOXIDE 28 mEq/l (22-31); CHLORIDE 100 mEq/L (97-110); CREATININE 0.9 mg/dL (0.7-1.3); GLOMERULAR FILTRATION RATE > 60; GLUCOSE 46 mg/dL (70-100); POTASSIUM 3.7 mEq/L (3.5-5.2); SODIUM 141 mEq/L (134-144)
[2017-08-27] MEDS: INSULIN GLARGINE 100 UNITS/ML SYRINGE SC SCH ×2 (06:38→17:32)
[2017-08-27] MEDS: ENOXAPARIN 40 MG/0.4 ML SYR SC SCH (07:32)
[2017-08-27] MEDS: predniSONE 20 MG TAB PO SCH (07:32)
[2017-08-27] MEDS: ACETAMINOPHEN 325 MG TAB PO PRN (07:32)
--- NOTE | 2017-08-27 09:49 | HOSPPROG ---
Hospitalist Progress Note Assessment/Plan: # acute hypoxic respiratory failure - continues to have very slow improvement - cont steroids, BDs, mucomyst, IS, flutter valve # viral rhino/enterovirus respiratory infection # mucous plugging, atelectasis - pulm hygiene, mucomyst, steroids, flutter valve # chronic systolic CHF, AICD, EF 25% - compensated - coreg, lisinopril, lasix # DM2 - insulin # obesity - BMI 36 # htn - amlodipine, coreg Subjective: felt better yesterday afternoon but had a bad night Objective: Vital Signs Temp Pulse Resp BP Pulse Ox 36.9 C 81 18 124/58 H 92 08/27/17 08:00 08/27/17 08:00 08/27/17 08:00 08/27/17 08:00 08/27/17 08:00 Laboratory Results 08/26/17 08:38 08/27/17 05:45 08/26/17 08/27/17 08/28/17 05:59 05:59 05:59 Intake Total 600 550 420 Output Total 700 1500 Balance -100 -950 420 PT 13.4 SEC (12.0-15.0) 08/22/17 10:21 INR 1.03 (0.83-1.16) 08/22/17 10:21 - Physical Exam Constitutional: chronically ill appearing Cardiovascular: regular rate and rhythym, no murmur, rub, or gallop Respiratory: no respiratory distress, expiratory wheeze, inspiratory crackles, rhonchi Gastrointestinal: normoactive bowel sounds, soft, non-tender abdomen, no palpable masses ICD10 Worksheet Patient Problems: Problems Problem Status Onset CHF - Systolic heart failure Chronic Diabetes mellitus type 2 Chronic Exhaustion Acute Hypoxemia Acute
[2017-08-27] MEDS: FLUTICASONE NASAL 120 SPRAYS/16 GM MDI EACHNARE SCH (10:47)
[2017-08-27] MEDS: INSULIN LISPRO 100 UNIT/ML SC PRN ×3 (12:00→21:14)
[2017-08-27] MEDS: ASPIRIN 81 MG CHEWABLE TAB PO SCH (17:03)
[2017-08-27] MEDS: ATORVASTATIN CALCIUM 40 MG TAB PO SCH (20:04)
[2017-08-27] MEDS: HYDROcodone/CPM TUSSIONEX 5 ML UDSYR PO PRN (21:10)
[2017-08-28] MEDS: GUAIFENESIN/DM 10 ML UDCUP PO PRN (00:36)
[2017-08-28] MEDS: IPRATROPIUM/ALBUTEROL 3 ML DEYVIAL IH SCH ×5 (00:58→21:19)
[2017-08-28] MEDS: ACETYLCYSTEINE 10% 30 ML VIAL IH SCH ×5 (00:58→21:20)
[2017-08-28 05:33] LABS: % IMMATURE GRANULYOCYTES 0.8 % (0.0-1.1); ABSOLUTE IMMATURE GRANULOCYTES 0.12 10^3/uL (0.00-0.10); ADD DIFF? NO; ADD MORPH? NO; ADD SCAN? NO; ATYPICAL LYMPHOCYTE FLAG 30 (0-99); FRAGMENT RBC FLAG 0 (0-99); HEMATOCRIT 35.7 % (40.0-51.0); HEMOGLOBIN 11.8 g/dL (13.7-17.5); LEFT SHIFT FLG 10 (0-99); LIPEMIA HEMOLYSIS FLAG 80 (0-99); MEAN CELL HEMOGLOBIN 28.6 pg (27.9-34.1); MEAN CELL HEMOGLOBIN CONCENTR. 33.1 g/dL (32.4-36.7); MEAN CELL VOLUME 86.7 fL (81.5-99.8); MEAN PLATELET VOLUME 10.8 fL (8.7-11.7); PLATELET CLUMPS FLAG 0 (0-99); PLATELET COUNT 217 10^3/uL (150-400); RED BLOOD CELL COUNT 4.12 10^6/uL (4.40-6.38); RED CELL DISTRIBUTION WIDTH 13.2 % (11.5-15.2)
[2017-08-28] MEDS: FERROUS SULFATE 325 MG TAB PO SCH (05:55)
[2017-08-28] MEDS: CARVEDILOL 25 MG TAB PO SCH ×2 (05:55→16:12)
[2017-08-28] MEDS: POTASSIUM CL 20 MEQ TAB PO SCH (05:56)
[2017-08-28] MEDS: PANTOPRAZOLE SODIUM 40 MG TAB PO SCH (05:56)
[2017-08-28] MEDS: FUROSEMIDE 40 MG TAB PO SCH (05:56)
[2017-08-28] MEDS: amLODIPine BESYLATE 5 MG TAB PO SCH (05:56)
[2017-08-28] MEDS: DICYCLOMINE 10 MG CAP PO SCH (05:56)
[2017-08-28] MEDS: LISINOPRIL 40 MG TAB PO SCH (05:56)
[2017-08-28] MEDS: INSULIN GLARGINE 100 UNITS/ML SYRINGE SC SCH ×2 (06:48→17:36)
[2017-08-28 07:23] LABS: ANION GAP 12 mEq/L (8-16); CALCIUM 8.9 mg/dL (8.5-10.4); CARBON DIOXIDE 26 mEq/l (22-31); CHLORIDE 100 mEq/L (97-110); GLOMERULAR FILTRATION RATE > 60; GLUCOSE 203 mg/dL (70-100); SODIUM 138 mEq/L (134-144)
[2017-08-28] MEDS: ENOXAPARIN 40 MG/0.4 ML SYR SC SCH (08:03)
[2017-08-28] MEDS: INSULIN LISPRO 100 UNIT/ML SC PRN ×5 (08:03→22:11)
[2017-08-28] MEDS: predniSONE 20 MG TAB PO SCH (08:03)
--- NOTE | 2017-08-28 13:39 | HOSPPROG ---
Hospitalist Progress Note Assessment/Plan: 67 yo M wth PMH of DM2, chronic systolic heart failure and morbid obesity presenting with viral respiratory infection and acute respiratory failure # acute hypoxic respiratory failure: at baseline does not require any supplemental o2 but currently requiring 2-3 L to maintain o2 sats in the low 90s , was as low as 80% on RA. 2/2 viral respiratory infection and on personal review of most recent cxr, significant component of atelectasis as well. Will start IS, CDB and wean o2 as able with hopes to dc in am off of oxygen # viral respiratory infection: with PCR showing rhinovirus and enterovirus likely responsible for his presentation, as above # mucus plugging: noted on review of CTA, in setting of viral illness and atelectasis has been on mucomyst and currently day 4 of prednisone 40mg--will dc steroids and monitor. # Chronic systolic heart failure: with EF of 25%, appears well compensated currently, has AICD continue asa, statin, bb, lasix # dm2: continue SSI and glargine,sugars have been slightly high likely due to steroids # htn: BP well controlled, continue amlodipine and coreg # dispo: IP status, likely dc on 08/29 Patient new to my care. Old records reviewed and summarized as above. Subjective: no significant overnight events, patient currently feeling better than when he came in but still quite fatigued and weak when walking Objective: Vital Signs Temp Pulse Resp BP Pulse Ox 36.4 C 79 15 139/68 H 93 08/28/17 11:56 08/28/17 11:56 08/28/17 11:56 08/28/17 11:56 08/28/17 11:56 Laboratory Results 08/28/17 04:20 08/28/17 04:20 08/27/17 08/28/17 08/29/17 05:59 05:59 05:59 Intake Total 550 1320 Output Total 1500 1725 975 Balance -950 -405 -975 PT 13.4 SEC (12.0-15.0) 08/22/17 10:21 INR 1.03 (0.83-1.16) 08/22/17 10:21 awake alert nad anicteric op clear rrr no mrg insp crackles, otherwise cta, diminished throughout soft nt nd no cce warm dry well perfused oriented appropriate ICD10 Worksheet Patient Problems: Problems Problem Status Onset CHF - Systolic heart failure Chronic Diabetes mellitus type 2 Chronic Exhaustion Acute Hypoxemia Acute
--- NOTE | 2017-08-28 14:20 | ASMTCMCOM ---
CM Note CM Note Notes: 08/28/2017 Case Management Note Met w/ pt. Discussed home care feasibility. Pt refused services. Pt will not be homebound. 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 He is looking forward to returning to his 'second family'. Pt has family support from brother Tez [phone] ([phone] (cell), who visits w/pt regularly during the week. 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 Pt reports making meals independently. No case management d/c needs identfied. Case Management d/c poc: Home Independent w/follow up as directed when medically stable. Case Management available if needs change. Date Signed: 08/28/2017 02:19 PM Electronically Signed By:Dodie Coy RN
[2017-08-28] MEDS ORDERED: FLU VACC QS 2017-18 (3YR+)/PF 0.5 ML SYR (FLUARIX QUAD) IM ONE (14:31)
[2017-08-28] MEDS: FLUTICASONE NASAL 120 SPRAYS/16 GM MDI EACHNARE SCH ×2 (14:40→22:19)
[2017-08-28] MEDS: ASPIRIN 81 MG CHEWABLE TAB PO SCH (16:12)
[2017-08-28] MEDS: ATORVASTATIN CALCIUM 40 MG TAB PO SCH (20:09)
[2017-08-28] MEDS: HYDROcodone/CPM TUSSIONEX 5 ML UDSYR PO PRN (22:11)
[2017-08-29] MEDS: IPRATROPIUM/ALBUTEROL 3 ML DEYVIAL IH SCH (05:12)
[2017-08-29] MEDS: ACETYLCYSTEINE 10% 30 ML VIAL IH SCH (05:13)
[2017-08-29] MEDS: DICYCLOMINE 10 MG CAP PO SCH (05:58)
[2017-08-29] MEDS: PANTOPRAZOLE SODIUM 40 MG TAB PO SCH (05:58)
[2017-08-29] MEDS: amLODIPine BESYLATE 5 MG TAB PO SCH (05:59)
[2017-08-29] MEDS: CARVEDILOL 25 MG TAB PO SCH (05:59)
[2017-08-29] MEDS: FUROSEMIDE 40 MG TAB PO SCH (05:59)
[2017-08-29] MEDS: FERROUS SULFATE 325 MG TAB PO SCH (06:00)
[2017-08-29] MEDS: POTASSIUM CL 20 MEQ TAB PO SCH (06:00)
[2017-08-29] MEDS: LISINOPRIL 40 MG TAB PO SCH (06:00)
[2017-08-29] MEDS: INSULIN GLARGINE 100 UNITS/ML SYRINGE SC SCH (06:00)
[2017-08-29 07:39] VITALS: PULSE 74; RESP 20; TEMP 98.6; O2SAT 94
[2017-08-29] MEDS: ENOXAPARIN 40 MG/0.4 ML SYR SC SCH (08:10)
[2017-08-29] MEDS: FLUTICASONE NASAL 120 SPRAYS/16 GM MDI EACHNARE SCH (08:11)
[2017-08-29 09:19] VITALS: BP 155/70
--- NOTE | 2017-08-29 09:31 | PDDCSUM ---
Discharge Summary Discharge Summary: Dates of service 08/22-08/29/17 consultations: none procedures performed: abd ct, chest cta Hospital course by problem # acute hypoxic respiratory failure: at baseline does not require any supplemental o2 but currently requiring 2-3 L to maintain o2 sats in the low 90s , was as low as 80% on RA. 2/2 viral respiratory infection and on personal review of most recent cxr, significant component of atelectasis as well. On RA patient still in high 80s but declines going home with oxygen, he agrees to f/u with PCP to determine if he is maintaining o2 sats off of it # viral respiratory infection: with PCR showing rhinovirus and enterovirus likely responsible for his presentation, as above # mucus plugging: noted on review of CTA, in setting of viral illness and atelectasis, clinically improved # Chronic systolic heart failure: with EF of 25%, appears well compensated currently, has AICD continue asa, statin, bb, lasix # dm2: continue SSI and glargine,sugars have been slightly high likely due to steroids--will have patient continue his home regimen, f/u with endocrinology. He has had both highs and lows in house and he agrees to continue monitoring closely at home # htn: BP well controlled, continue amlodipine and coreg dc home f/u with PCP/endocrinology > 35 min spent in dc more than half in coordination of care
--- NOTE | 2017-08-29 11:39 | ASDISCHSUM ---
Discharge Information Plan Status:Home with No Needs Medically Cleared to Leave:08/29/2017 Discharge Date:08/29/2017 10:18 AM CM D/C Disposition:Home, Routine, Self-Care ADT D/C Disposition:Home, Routine, Self-Care Projected Discharge Date:08/29/2017 10:18 AM Transportation at D/C:Family Discharge Delay Reason: Follow-Up Date:08/29/2017 10:18 AM Discharge Slot: Final Diagnosis: Placement Information Patient Contact Information Contact Name:IVORY Relationship: Address:[address] [place] [address] City:[place] Alternate Phone: State/Zip Code:[place] [address] Email: Financial Information Financial Class: Primary Plan Desc:MEDICARE INPATIENT Primary Plan Number:[id number] Secondary Plan Desc:[facility] Secondary Plan Number:[id number] Assessment Information [facility] Initial CM Assessment Living Arrangements What is your living Answers: Alone arrangement? Who do you live with? Type Of Residence What kind of residence do Answers: House you live in? Discharge Plan Comments Coordination Status Comments Notes: Chart reviewed and spoke w/ ADAM Pacheco regarding d/c POC. Pt is a 67 y/o man admitted w/ hypoxemia and URI symptoms. PT is recommending that he goes home independently. OT is recommending HC. CM met w/ pt for dispo planning. Pt does not feel like he needs HC at this time. Pt will most likely d/c independent when medically stable w/ supportive family. CM available for changes. Date Signed: 08/23/2017 05:05 PM Electronically Signed By:SONYA Barry [facility] CM Progress Note CM Note CM Note Notes: Reviewed chart re: d/c poc, pt's progress. Per MD notes, pt's acute hypoxic resp failure not improving; pt w/ viral infection. Discharge plan remains TBD. PT/OT rec home w/ no needs. CM will cont to follow. Date Signed: 08/25/2017 04:22 PM Electronically Signed By:Evangelina Mckeon RN [facility] CM Progress Note CM Note CM Note Notes: 08/28/2017 Case Management Note Met w/ pt. Discussed home care feasibility. Pt refused services. Pt will not be homebound. 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 He is looking forward to returning to his 'second family'. Pt has family support from brother Tez [phone] ([phone] (cell), who visits w/pt regularly during the week. 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 Pt reports making meals independently. No case management d/c needs identfied. Case Management d/c poc: Home Independent w/follow up as directed when medically stable. Case Management available if needs change. Date Signed: 08/28/2017 02:19 PM Electronically Signed By:Dodie Coy RN Intervention Information Intervention Type:*FELIX-Signed Date of Service:08/23/2017 10:15 AM Patient Type:Observation Staff Member:iNru Ray Hours: Discipline: Severity: Comment:
== END 2017-08-29 10:18 | disposition home or self-care (01) | DRG 189 ==
LOC: F2W 14:55 → OBSVTOIN 08-23 10:49
PROVIDERS: ADMIT Internal Medicine; ATTEND Internal Medicine
DX: J96.01 Acute respiratory failure with hypoxia (principal); I11.0 Hypertensive heart disease with heart failure; I50.22 Chronic systolic (congestive) heart failure; J06.9 Acute upper respiratory infection, unspecified; E11.9 Type 2 diabetes mellitus without complications; Z85.3 Personal history of malignant neoplasm of breast; Z95.810 Presence of automatic (implantable) cardiac defibrillator; Z23 Encounter for immunization; Z87.891 Personal history of nicotine dependence; E78.5 Hyperlipidemia, unspecified; N40.0 Benign prostatic hyperplasia without lower urinary tract symptoms; B97.89 Other viral agents as the cause of diseases classified elsewhere; B97.10 Unspecified enterovirus as the cause of diseases classified elsewhere; E66.9 Obesity, unspecified; Z68.36 Body mass index [BMI] 36.0-36.9, adult
CPT/HCPCS: 97161-GP; 97165-GO; 97530-GP; 97535-GO; G0008; G0378; G8978-GP-CI; G8979-GP-CI; G8980-GP-CI; G8987-GO-CJ; G8988-GO-CH; J1650; J1815; J1940; J2405; P9041; Q9967

== ENCOUNTER → 2018-02-19 | Outpatient (CLI) | payer OTHER | LOC: BHFA 13:15 | PROVIDERS: ATTEND Internal Medicine | DX: I42.9 Cardiomyopathy, unspecified (principal) ==